=== PATIENT | male | born 2000 | race Caucasian/White ===

== ENCOUNTER 2021-02-22 11:36 | Inpatient (IN) ==
[2021-02-22 12:05] LABS: Appearance Urine Clear (Clear); Bacteria Urine Automated Negative (Negative); Bilirubin Urine Negative (Negative); Blood Urine Negative (Negative); Color Urine Dark Yellow; Glucose Urine UA Negative (Negative); Ketones Urine Trace (Negative); Leukocyte Esterase Urine Negative (Negative); Nitrite Urine Negative (Negative); Protein Urine Trace (Negative); RBC Urine Automated 0-4 /hpf (0-4); Specific Gravity Urine 1.026 (1.000-1.030); Urobilinogen Urine Negative (Negative)
--- NOTE | 2021-02-22 12:22 | Emergency Department Note ---
Impression & Plan Depressed mood, Tobacco use ED Provider Note NAME: AILEEN ANNE Jr AGE: 20 SEX: M : 2000 ARRIVES VIA: Walk-In INFORMANT: Patient, ED PROVIDER(S): Pedro Menard MD Chief Complaint: Depressed HPI: Patient does present due to concern for increasing depressed mood which is been ongoing but seems to be worse over the last several days. Patient states he has had symptoms for several months. Patient was recently started on Prozac 20 mg and increase to 40 mg. He has been on this for 2 weeks. Patient has had thoughts of apathy and not living but does not have active plan. No prior history of self-harm or suicide attempts. The patient does not have access to guns or weapons. The patient's from [facility] and is present with his father at bedside. The patient states his appetite is been poor sleeping has been okay. The patient had been on Prozac last year and seemed to do well and had come off it in the springtime. The patient denies any HI or AVH. Patient states that he is typically a straight a student but has not been doing so well this semester at [employer]. ROS: See HPI for pertinent positives and negatives. A total of 10 systems were reviewed and otherwise negative. Past medical history: See below Surgical history: See below Social history: See below Physical Exam: GENERAL: NAD, wearing a mask, non-toxic. EYE EXAM: Normal conjunctiva. PERRL, no anisocoria and EOM's grossly intact w/o pain. NECK: Supple, no nuchal rigidity, no adenopathy, non-tender. No signs of meningismus. LUNGS: Clear to auscultation. Normal chest wall mechanics. HEART: NSR, no MRG. ABDOMEN: Abdomen soft, non-tender, normo-active bowel sounds, no masses, no rebound or guarding. BACK: No CVA TTP. SKIN: No rashes and no bruising. UPPER EXTREMITIES: Upper extremities are grossly normal. LOWER EXTREMITIES: Grossly normal, no edema. NEURO EXAM: A&O x3, cranial nerves II-XII grossly intact, normal speech, moves all 4 extremities on command w/o issue. Psych: Depressed mood, negative HI or AVH. Differential diagnoses: Mood disorder, infection, hypoglycemia, electrolyte abnormalities, cardiac sources, intracerebral event, toxicologic, trauma, neurologic, as well as other pathologies. Course: Patient was seen and evaluated the bedside. Full history physical exam was performed. MDM: Patient was seen due to concern for mental wellness. Blood work was obtained and the patient was seen medically cleared. The patient did have a referral made to upstairs 3 S. The patient was pending admission. The patient was signed out to Dr. Petty pending possible admission. Past Med/Surg History Medical History ADHD Depression Surgical History No pertinent past surgical history Social History Smoking Status: Light tobacco smoker Tobacco Type: Smokeless Tobacco (Dip or Chew) Hx Alcohol Use: Yes Hx Substance Use: Yes Prescribed Medications: Marijuana Preferred Language: Ukrainian current occupational status: student current occupation: [employer] student Feels Safe at Home: No Immunizations: Vaccinated for COVID-19 Allergies Allergies Allergy/AdvReac Type Severity Reaction Status Date / Time amoxicillin [From Augmentin] Allergy Severe SEVERE Verified 12/15/18 04:30 VOMITING, DIARRHEA clavulanic acid Allergy Severe SEVERE Verified 12/15/18 04:30 [From Augmentin] VOMITING, DIARRHEA pollen extracts Allergy Intermediate SNEEZING, Verified 12/15/18 04:30 RUNNY NOSE Home Meds Home Medications Medication Instructions Recorded Confirmed fluoxetine 40 mg capsule (Prozac) 40 mg PO DAILY 02/22/21 02/22/21 ginkgo biloba 1 tab PO DAILY 02/22/21 02/22/21 multivitamin with minerals-folic 1 tab PO DAILY 02/22/21 02/22/21 acid 200 mcg chewable tablet (Men's Multivitamin Gummies) Results & Data (ED) Vital Signs Vital Signs - 24 hr 02/22/21 11:36 02/22/21 12:04 02/22/21 15:30 Temperature 37.2 C 37.2 C 36.9 C Temperature Source Oral Oral Oral Pulse Rate 72 Pulse Rate [Finger] 72 58 L Pulse Rhythm [Finger] Regular Pulse Strength [Finger] Normal Respiratory Rate 18 18 20 Respiratory Effort / Characteristics Non-Labored Spontaneous Respiratory Depth Normal Respiratory Pattern Regular Blood Pressure 123/68 Blood Pressure [Right Arm] 132/68 130/67 Blood Pressure Mean 86 Blood Pressure Mean [Right Arm] 89 88 Blood Pressure Position [Right Arm] Sitting Pulse Oximetry 95 95 97 Oxygen Delivery Method Room Air Room Air Room Air Sepsis Recent Fever Within 48 Hours No Sepsis New/Unexplained Change in Mental Status No Sepsis Action Taken by Nursing No Action Required Home Medications Current Medication List: was personally reviewed by me Laboratory Data Attestation: I reviewed the patient's lab results. Result diagrams: 02/22/21 12:19 02/22/21 12:19 Lab Results 02/22/21 02/22/21 02/22/21 Range/Units 11:49 11:49 12:19 WBC 9.63 (4.8-10.8) K/uL RBC 4.72 (4.7-6.1) M/uL Hgb 14.9 (14.0-18.0) g/dL Hct 42.5 (42-52) % MCV 90.0 (80-100) fL MCH 31.6 (25-34) pg MCHC 35.1 (32-36) g/dL RDW Std Deviation 40.5 (36.4-46.3) fL RDW Coeff of Odalis 12.3 (11.5-14.5) % Plt Count 247 (130-400) K/uL MPV 10.8 H (7.4-10.4) fL Immature Gran % (Auto) 0.2 % Neut % (Auto) 75.6 % Lymph % (Auto) 15.9 % Cannon % (Auto) 7.2 % Eos % (Auto) 0.8 % Baso % (Auto) 0.3 % Neut # (Auto) 7.28 H (1.4-6.5) K/uL Lymph # (Auto) 1.53 (1.2-3.4) K/uL Cannon # (Auto) 0.69 H (0.11-0.59) K/uL Eos # (Auto) 0.08 (0-0.5) K/uL Baso # (Auto) 0.03 (0-0.2) K/uL Immature Gran # (Auto) 0.02 (0.00-0.02) K/uL Sodium (136-145) mmol/L Potassium (3.5-5.1) mmol/L Chloride (98-107) mmol/L Carbon Dioxide (21-32) mmol/L Anion Gap (3-11) BUN (7-18) mg/dl Creatinine (0.6-1.4) mg/dl Est Cr Clr Drug Dosing ml/min Est GFR ( Amer) ml/min Est GFR (Non-Af Amer) ml/min BUN/Creatinine Ratio (10-20) Glucose (70-99) mg/dl Calcium (8.5-10.1) mg/dl Total Bilirubin (0.2-1) mg/dl AST (15-37) U/L ALT (12-78) U/L Alkaline Phosphatase (45-117) U/L Total Protein (6.4-8.2) gm/dl Albumin (3.4-5.0) gm/dl Globulin (2.5-4.0) gm/dl Albumin/Globulin Ratio (0.9-2) TSH (0.300-4.500) uIu/ml Urine Color Dark Yellow Urine Appearance Clear (Clear) Urine pH 6.0 (4.5-7.5) Ur Specific [place] 1.026 (1.000-1.030) Urine Protein Trace H (Negative) Urine Glucose (UA) Negative (Negative) Urine Ketones Trace H (Negative) Urine Blood Negative (Negative) Urine Nitrite Negative (Negative) Urine Bilirubin Negative (Negative) Urine Urobilinogen Negative (Negative) Ur Leukocyte Esterase Negative (Negative) Urine WBC (Auto) 1-5 (0-5) /hpf Urine RBC (Auto) 0-4 (0-4) /hpf U Hyaline Cast (Auto) 1-5 (0-5) /lpf U Epithel Cells (Auto) 10-20 H (0-5) /lpf Urine Bacteria (Auto) Negative (Negative) Salicylates (2.8-20) mg/dl Urine Opiates Screen Neg (Neg) Ur Methadone, Qual Neg (Neg) Acetaminophen (10-30) ug/ml Urine Barbiturates Neg (Neg) Ur Phencyclidine (PCP) Neg (Neg) U Amphetamin/Meth Scrn Neg (Neg) MDMA (Ecstasy) Screen Neg (Neg) U Benzodiazepines Scrn Neg (Neg) Ur Cocaine Metabolite Neg (Neg) U Marijuana (THC) Screen Pos H (Neg) Ethyl Alcohol mg/dL (0-3) mg/dl SARS-CoV-2, RNA, NAAT (NEGATIVE) 02/22/21 02/22/21 02/22/21 Range/Units 12:19 12:19 12:19 WBC (4.8-10.8) K/uL RBC (4.7-6.1) M/uL Hgb (14.0-18.0) g/dL Hct (42-52) % MCV (80-100) fL MCH (25-34) pg MCHC (32-36) g/dL RDW Std Deviation (36.4-46.3) fL RDW Coeff of Odalis (11.5-14.5) % Plt Count (130-400) K/uL MPV (7.4-10.4) fL Immature Gran % (Auto) % Neut % (Auto) % Lymph % (Auto) % Cannon % (Auto) % Eos % (Auto) % Baso % (Auto) % Neut # (Auto) (1.4-6.5) K/uL Lymph # (Auto) (1.2-3.4) K/uL Cannon # (Auto) (0.11-0.59) K/uL Eos # (Auto) (0-0.5) K/uL Baso # (Auto) (0-0.2) K/uL Immature Gran # (Auto) (0.00-0.02) K/uL Sodium 140 (136-145) mmol/L Potassium 3.7 (3.5-5.1) mmol/L Chloride 108 H (98-107) mmol/L Carbon Dioxide 27 (21-32) mmol/L Anion Gap 5.0 (3-11) BUN 11 (7-18) mg/dl Creatinine 1.04 (0.6-1.4) mg/dl Est Cr Clr Drug Dosing 123.3 ml/min Est GFR ( Amer) 118.4 ml/min Est GFR (Non-Af Amer) 102.2 ml/min BUN/Creatinine Ratio 10.9 (10-20) Glucose 96 (70-99) mg/dl Calcium 9.6 (8.5-10.1) mg/dl Total Bilirubin 0.6 (0.2-1) mg/dl AST 23 (15-37) U/L ALT 29 (12-78) U/L Alkaline Phosphatase 81 (45-117) U/L Total Protein 7.5 (6.4-8.2) gm/dl Albumin 4.0 (3.4-5.0) gm/dl Globulin 3.5 (2.5-4.0) gm/dl Albumin/Globulin Ratio 1.1 (0.9-2) TSH 0.901 (0.300-4.500) uIu/ml Urine Color Urine Appearance (Clear) Urine pH (4.5-7.5) Ur Specific [place] (1.000-1.030) Urine Protein (Negative) Urine Glucose (UA) (Negative) Urine Ketones (Negative) Urine Blood (Negative) Urine Nitrite (Negative) Urine Bilirubin (Negative) Urine Urobilinogen (Negative) Ur Leukocyte Esterase (Negative) Urine WBC (Auto) (0-5) /hpf Urine RBC (Auto) (0-4) /hpf U Hyaline Cast (Auto) (0-5) /lpf U Epithel Cells (Auto) (0-5) /lpf Urine Bacteria (Auto) (Negative) Salicylates < 1.7 L (2.8-20) mg/dl Urine Opiates Screen (Neg) Ur Methadone, Qual (Neg) Acetaminophen < 2 L (10-30) ug/ml Urine Barbiturates (Neg) Ur Phencyclidine (PCP) (Neg) U Amphetamin/Meth Scrn (Neg) MDMA (Ecstasy) Screen (Neg) U Benzodiazepines Scrn (Neg) Ur Cocaine Metabolite (Neg) U Marijuana (THC) Screen (Neg) Ethyl Alcohol mg/dL < 3.0 (0-3) mg/dl SARS-CoV-2, RNA, NAAT (NEGATIVE) 02/22/21 Range/Units 12:20 WBC (4.8-10.8) K/uL RBC (4.7-6.1) M/uL Hgb (14.0-18.0) g/dL Hct (42-52) % MCV (80-100) fL MCH (25-34) pg MCHC (32-36) g/dL RDW Std Deviation (36.4-46.3) fL RDW Coeff of Odalis (11.5-14.5) % Plt Count (130-400) K/uL MPV (7.4-10.4) fL Immature Gran % (Auto) % Neut % (Auto) % Lymph % (Auto) % Cannon % (Auto) % Eos % (Auto) % Baso % (Auto) % Neut # (Auto) (1.4-6.5) K/uL Lymph # (Auto) (1.2-3.4) K/uL Cannon # (Auto) (0.11-0.59) K/uL Eos # (Auto) (0-0.5) K/uL Baso # (Auto) (0-0.2) K/uL Immature Gran # (Auto) (0.00-0.02) K/uL Sodium (136-145) mmol/L Potassium (3.5-5.1) mmol/L Chloride (98-107) mmol/L Carbon Dioxide (21-32) mmol/L Anion Gap (3-11) BUN (7-18) mg/dl Creatinine (0.6-1.4) mg/dl Est Cr Clr Drug Dosing ml/min Est GFR ( Amer) ml/min Est GFR (Non-Af Amer) ml/min BUN/Creatinine Ratio (10-20) Glucose (70-99) mg/dl Calcium (8.5-10.1) mg/dl Total Bilirubin (0.2-1) mg/dl AST (15-37) U/L ALT (12-78) U/L Alkaline Phosphatase (45-117) U/L Total Protein (6.4-8.2) gm/dl Albumin (3.4-5.0) gm/dl Globulin (2.5-4.0) gm/dl Albumin/Globulin Ratio (0.9-2) TSH (0.300-4.500) uIu/ml Urine Color Urine Appearance (Clear) Urine pH (4.5-7.5) Ur Specific [place] (1.000-1.030) Urine Protein (Negative) Urine Glucose (UA) (Negative) Urine Ketones (Negative) Urine Blood (Negative) Urine Nitrite (Negative) Urine Bilirubin (Negative) Urine Urobilinogen (Negative) Ur Leukocyte Esterase (Negative) Urine WBC (Auto) (0-5) /hpf Urine RBC (Auto) (0-4) /hpf U Hyaline Cast (Auto) (0-5) /lpf U Epithel Cells (Auto) (0-5) /lpf Urine Bacteria (Auto) (Negative) Salicylates (2.8-20) mg/dl Urine Opiates Screen (Neg) Ur Methadone, Qual (Neg) Acetaminophen (10-30) ug/ml Urine Barbiturates (Neg) Ur Phencyclidine (PCP) (Neg) U Amphetamin/Meth Scrn (Neg) MDMA (Ecstasy) Screen (Neg) U Benzodiazepines Scrn (Neg) Ur Cocaine Metabolite (Neg) U Marijuana (THC) Screen (Neg) Ethyl Alcohol mg/dL (0-3) mg/dl SARS-CoV-2, RNA, NAAT NEGATIVE (NEGATIVE) Discharge Plan Visit Data Chief Complaint: Mental Health Evaluation Stated Complaint: DEPRESSION,MENTAL HEALTH ISSUES ED Provider: Yadiel Petty Discharge Problem: Depressed mood, Tobacco use Forms Stand Alone Forms: My [facility], Suicide Prevention Resources Prescriptions Prescriptions: No Action fluoxetine [Prozac] 40 mg Capsule 40 mg PO DAILY RF: 0 ginkgo biloba Tablet 1 tab PO DAILY RF: 0 Men's Multivitamin Gummies 200 mcg Tablet,Chewable 1 tab PO DAILY RF: 0 Referrals Referrals: PCP,NO [Physician] -
[2021-02-22 12:41] LABS: Basophils # (auto) 0.03 K/uL (0-0.2); Basophils % (auto) 0.3 %; Eosinophils # (auto) 0.08 K/uL (0-0.5); Eosinophils % (auto) 0.8 %; Hematocrit (blood only) 42.5 % (42-52); Hemoglobin 14.9 g/dL (14.0-18.0); Immature Granulocytes # (auto) 0.02 K/uL (0.00-0.02); Immature Granulocytes % (auto) 0.2 %; Lymphocytes # (auto) 1.53 K/uL (1.2-3.4); Lymphocytes % (auto) 15.9 %; Mean Corpuscular Hemoglobin 31.6 pg (25-34); Mean Corpuscular Hgb Conc 35.1 g/dL (32-36); Mean Platelet Volume 10.8 fL (7.4-10.4); Monocytes # (auto) 0.69 K/uL (0.11-0.59); Monocytes % (auto) 7.2 %; Neutrophils # (auto) 7.28 K/uL (1.4-6.5); Neutrophils % (auto) 75.6 %; Platelet Count 247 K/uL (130-400); RDW Coefficient of Variation 12.3 % (11.5-14.5); RDW Standard Deviation 40.5 fL (36.4-46.3); Red Blood Count 4.72 M/uL (4.7-6.1); White Blood Count 9.63 K/uL (4.8-10.8)
[2021-02-22 12:53] LABS: Amphetamines+Metham, Urine Neg (Neg); Barbiturates, Urine Neg (Neg); Benzodiazepine, Urine Neg (Neg); Cocaine, Urine Neg (Neg); MDMA (Ecstacy), Urine Neg (Neg); Methadone, Urine Neg (Neg); Opiate, Urine Neg (Neg); Phencyclidine, Urine Neg (Neg)
[2021-02-22 13:00] LABS: Acetaminophen < 2 ug/ml (10-30); BUN Creatinine Ratio 10.9 (10-20); Calcium 9.6 mg/dl (8.5-10.1); Creatinine Clr Calc Pharmacy 123.3 ml/min; Est GFR (African American) 118.4 ml/min; Est GFR (Non-African American) 102.2 ml/min; Potassium 3.7 mmol/L (3.5-5.1); Salicylate < 1.7 mg/dl (2.8-20)
[2021-02-22 13:10] LABS: Albumin Globulin Ratio 1.1 (0.9-2); Bilirubin,Total 0.6 mg/dl (0.2-1); Globulin 3.5 gm/dl (2.5-4.0); Thyroid Stimulating Hormone 0.901 uIu/ml (0.300-4.500); Total Protein 7.5 gm/dl (6.4-8.2)
[2021-02-22] MEDS ORDERED: SODIUM CHLORIDE 0.65% NA SOLN 45 ML (OCEAN) PRN ×2 (16:28→16:44)
[2021-02-22] MEDS ORDERED: BISMUTH SUBSALICYLATE LIQD 236 ML PO PRN ×2 (16:28→16:44)
[2021-02-22] MEDS ORDERED: ALUMINUM/MAGNESIUM SUSP 30 ML UDC PO PRN ×2 (16:28→16:44)
[2021-02-22] MEDS ORDERED: MAGNESIUM HYDROXIDE SUSP 30 ML UDC PO PRN ×2 (16:28→16:44)
[2021-02-22] MEDS ORDERED: hydrOXYzine HCl 25 MG TAB PO PRN ×4 (16:28→16:44)
[2021-02-22] MEDS ORDERED: ACETAMINOPHEN 325 MG TAB PO PRN ×2 (16:28→16:44)
--- NOTE | 2021-02-22 17:00 | Emergency Department Note ---
ED Visit Note [id number]: Signout from Dr. Menard. Awaiting psychiatric evaluation. 20-year-old college student with depression. .
[2021-02-22] MEDS: NICOTINE POLACRILEX 2 MG GUM MT PRN (20:39)
[2021-02-22] MEDS: FLUoxetine HCL 20 MG CAP PO SCH (21:14)
[2021-02-23] MEDS: FLUTICASONE PROPIONATE NA SPR 16 GM BTL SCH (09:37)
--- NOTE | 2021-02-23 09:41 | History & Physical ---
Date of Service February 23, 2021 Impression / Recommendations Impression The patient is a 20 year old with a history of ADHD, seasonal depression and anxiety who was admitted for worsening depression and SI. Diagnostically consistent with MDD with seasonal component as well as SOCORRO and per history ADHD. The patient is deemed unstable and requires psychiatric hospitalization for diagnostic clarification, safety and stabilization, medication management and development of further coping skills. Discussed treatment options including medication in detail. He would like to continue the fluoxetine as this was helpful in the past. Discussed option of adding Wellbutrin to help with depression symptoms of low energy, concentration and motivation, ADHD symptoms, and help reduce cravings for nicotine use. Discussed risks including cardiac effects, increased anxiety, insomnia, decreas ed appetite. Counseled on black box warning of potential for emergence of or increased SI and need to let staff know should this occur or should they feel unsafe. Also discussed importance of seeking emergency care following discharge if this side effect occurs in the future. He would like to start Wellbutrin. Additionally discussed his substance use. He is motivated to stop using marijuana. The patient's audit score suggests problematic alcohol use consistent with binge drinking though based on DSM criteria he does not meet criteria for alcohol use disorder. nevertheless brief intervention was offered and accepted. Intervention was greater than 5 minutes in length and included assessing readiness to quit, advice on how to reduce or abstain and to set a specific goal for this hospitalization. riprap worker will also assist in anticipating barriers to reducing or abstaining from substance use and in problem-solving for solutions to those problems while arranging for referral to appropriate treatment. The patient is in precontemplative stage with regards to transtheoretical model of change for reducing alcohol use. The patient is advised to decrease consumption due to depressant effects and risk of interaction with prescription medications. The patient will be provided with recovery materials to continue to educate self on how to cope with their condition without using substances. (1) MDD (major depressive disorder), recurrent episode, moderate: (2) SOCORRO (generalized anxiety disorder): (3) Alcohol use: (4) Nicotine use: 02/23/21: The patient was admitted to the [facility] ([facility] mental health unit) on q15 min checks (behavioral with suicide precautions) for safety. The patient will participate in group, recreational, and milieu therapies and will be offered additional individual and family sessions as clinically appropriate. Will start Wellbutrin XL 150mg qAM and continue fluoxetine 40mg qhs. Added melatonin 9mg qhs prn which he takes in gummy form at home. Discussed benefit of bright light therapy for seasonal component of depression in addition to continuing outpatient therapy. Will monitor dietary intake given reduced appetite prior to admission. Risk Factors Assessment Do You Have Access To A Gun?: No Protective Factors Assessment Employed: No Psychiatric History Identifying Data AILEEN ANNE is a 20-year-old man and [employer] student, has a history of ADHD, depression and anxiety, and was admitted on 02/22/21 16:44 on a 201 voluntary commitment for worsening depression and SI with plan. Chief Complaint "I don't really want to do anything". History of Present Illness Aileen is a 20 yo man and [employer] senior with a history of ADHD, anxiety and depression which has worsened seasonally in the winter for the last two years. Over the last two months he's been experiencing worsening mood with anhedonia, difficulty sleeping, low energy, social isolation, decreased concentration, decreased appetite with unintentional weight loss of about 10 lbs, and SI. He feels like "brain fog" is the most challenging symptom of the depression as well as feeling lack of emotions "nothing" and having no preferences (not wanting to listen to music, not voicing his opinion and just feeling like he's going through the motions without any desire to engage). He's also been feeling anxious with social anxiety as well as generalized anxiety and low self-esteem. He's been experiencing thoughts of SI almost daily over the last two months since the depression onset and notes he's thought of dying by falling onto a knife so that it penetrates his neck but he feels like he would never act on these thoughts. He does at times feel like suicide may be "inevitable". He sees a therapist and psychiatrist while at college via telemedicine visits and was recently restarted on fluoxetine 2 weeks ago at 20mg qd which was then increased last week to a current dose of 40mg daily. He hasn't noticed any benefit from this yet. Experiencing sexual side effects from it. Psychiatric ROS notable for no history of pete, no hx psychosis, no hx OCD, hx anxiety, hx alcohol use, hx marijuana use and uses nicotine pouches. Past Psychiatric History Current Psychiatric Diagnosis: MDD Outpatient Services: Dr. Baer for psychiatry and Dr. Bethea for therapy, both at [facility] in [facility]. Previous Psych Admissions: none Do You Have Access To A Gun?: No History of Previous Suicide Attempt: No Describe Attempts in the Past: None Past Medication Trials: fluoxetine in the past, stopped in spring 2020 due to improved mood, restarted 2 months ago. Adderall at age [age] but stopped after experiencing some palpitations and an episode of fainting. 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 Allergies Allergy/AdvReac Type Severity Reaction Status Date / Time amoxicillin [From Augmentin] Allergy Severe SEVERE Verified 12/15/18 04:30 VOMITING, DIARRHEA clavulanic acid Allergy Severe SEVERE Verified 12/15/18 04:30 [From Augmentin] VOMITING, DIARRHEA pollen extracts Allergy Intermediate SNEEZING, Verified 12/15/18 04:30 RUNNY NOSE Home Medications Medication Instructions Recorded Confirmed Type fluoxetine 40 mg capsule (Prozac) 40 mg PO DAILY 02/22/21 02/22/21 History ginkgo biloba 1 tab PO DAILY 02/22/21 02/22/21 History multivitamin with minerals-folic 1 tab PO DAILY 02/22/21 02/22/21 History acid 200 mcg chewable tablet (Men's Multivitamin Gummies) Family History Family History of: Depression, Anxiety and Suicide Attempts Family Mental Health History Comment: aunt and cousin both suffer from anxiety and depression and have both attempted suicide Alcohol History Hx of Alcohol Use Over the Past 12 Months: Yes (5-6 drinks, 2-3 times a week) AUDIT Total Score: 9 drinks ~5-8 beers typically 3 nights per week with his fraternity brothers. hx blacking out in the past, does not feel that alcohol use interferes with functioning nor has caused any negative repercussions Smoking Use Have You Smoked or Used Tobacco Products in the Last 30 Days: Yes tobacco type: smokeless tobacco (nicotine [id number] per day ) Smoking Status: Light tobacco smoker Substance History Hx of Prescription Med Misuse Over the Past 12 Months: No Hx of Over the Counter Med Misuse Over the Past 12 Months: No Hx of Inhalent Misuse Over the Past 12 Months: No Hx of Organic Substance Use Over the Past 12 Months: Yes (THC) Hx of Illegal Substances/Street Drug Use Over Past 12 Months: No Problems as a Result of Past Substance Use: None Identified marijuana use socially Personal History Living Arrangements: fraternity house Childhood: supportive family, raised outside [facility], parents when he was 14. Has 1 younger brother age 19 Employment Status: Student Beliefs That Will Affect Care: None Current Legal Problems: No Hx Legal Problems: No Hx Traumatic Life Events: No Patient History Medical History (Updated 02/23/21 @ 11:38 by Meredith Helton MD) ADHD Depression SOCRORO (generalized anxiety disorder) Surgical History No pertinent past surgical history Social History Smoking Status: Light tobacco smoker Tobacco Type: Smokeless Tobacco (Dip or Chew) Hx Alcohol Use: Yes Hx Substance Use: Yes Prescribed Medications: Marijuana Preferred Language: Sami Communication Ability: Effective Bulb Brander Required: No Beliefs That Will Affect Care: None current occupational status: student current occupation: [employer] student Feels Safe at Home: No Assistive Devices: Glasses Assistive Devices Comment: pt does not have glasses with him; states he does not wear them daily Review of Systems Review of Systems: All systems reviewed & are unremarkable except as noted in HPI & below chronic knee pain, recent neck and back pain which he attributes to poor posture Physical Exam Psychiatric: Orientation: alert and oriented x 3 Apperance: appropriately dressed and appropriately groomed Eye Contact: good eye contact Motor Behavior: steady gait and station and no abnormal motor movements Speech: normal rate/rhythm/volume of speech Affect: + depressed affect Mood: + depressed mood and + anxious mood Thought Process: goal directed thought process Thought Content: reality based without delusions Suicidal Thoughts: denies suicidal plan and denies suicidal intent; + reports suicidal thoughts (intermittent SI) Homicidal Thoughts: denies homicidal thoughts Hallucinations: no auditory hallucinations and no visual hallucinations Cognition: recent memory grossly intact, remote memory grossly intact, attention grossly intact and language grossly intact Estimated Intelligence: consistent with education level Insight: + fair insight Judgement: + fair judgement Vital Signs (Past 24 Hours): Last Vital Signs Temp 36.4 C L 02/23/21 06:38 Pulse 90 02/23/21 06:39 Resp 16 02/23/21 06:38 BP 104/68 02/23/21 06:39 Pulse Ox 97 02/22/21 15:30 Exam Statement: A physical exam was performed in the ED by Dr. Mike for the purposes of medical clearance. I accept that physical as correct and adequate for the purposes of the inpatient physical exam. Results & Data ([facility]) Laboratory Results Laboratory Results - last 24 hr 02/22/21 02/22/21 02/22/21 11:49 11:49 11:49 WBC RBC Hgb Hct MCV MCH MCHC RDW Std Deviation RDW Coeff of Odalis Plt Count MPV Immature Gran % (Auto) Neut % (Auto) Lymph % (Auto) [place] % (Auto) Eos % (Auto) Baso % (Auto) Neut # (Auto) Lymph # (Auto) [place] # (Auto) Eos # (Auto) Baso # (Auto) Immature Gran # (Auto) Sodium Potassium Chloride Carbon Dioxide Anion Gap BUN Creatinine Est Cr Clr Drug Dosing Est GFR ( Amer) Est GFR (Non-Af Amer) BUN/Creatinine Ratio Glucose Calcium Total Bilirubin AST ALT Alkaline Phosphatase Total Protein Albumin Globulin Albumin/Globulin Ratio TSH Urine Color Dark Yellow Urine Appearance Clear Urine pH 6.0 Ur Specific [place] 1.026 Urine Protein Trace H Urine Glucose (UA) Negative Urine Ketones Trace H Urine Blood Negative Urine Nitrite Negative Urine Bilirubin Negative Urine Urobilinogen Negative Ur Leukocyte Esterase Negative Urine WBC (Auto) 1-5 Urine RBC (Auto) 0-4 U Hyaline Cast (Auto) 1-5 U Epithel Cells (Auto) 10-20 H Urine Bacteria (Auto) Negative Salicylates Urine Opiates Screen Neg Ur Methadone, Qual Neg Acetaminophen Urine Barbiturates Neg Ur Phencyclidine (PCP) Neg U Amphetamin/Meth Scrn Neg MDMA (Ecstasy) Screen Neg U Benzodiazepines Scrn Neg Ur Cocaine Metabolite Neg U Marijuana (THC) Screen Pos H U Marijuana THC Carboxy Pending Drug Screen Comment Pending Ethyl Alcohol mg/dL SARS-CoV-2, RNA, NAAT 02/22/21 02/22/21 02/22/21 12:19 12:19 12:19 WBC 9.63 RBC 4.72 Hgb 14.9 Hct 42.5 MCV 90.0 MCH 31.6 MCHC 35.1 RDW Std Deviation 40.5 RDW Coeff of Odalis 12.3 Plt Count 247 MPV 10.8 H Immature Gran % (Auto) 0.2 Neut % (Auto) 75.6 Lymph % (Auto) 15.9 [place] % (Auto) 7.2 Eos % (Auto) 0.8 Baso % (Auto) 0.3 Neut # (Auto) 7.28 H Lymph # (Auto) 1.53 [place] # (Auto) 0.69 H Eos # (Auto) 0.08 Baso # (Auto) 0.03 Immature Gran # (Auto) 0.02 Sodium 140 Potassium 3.7 Chloride 108 H Carbon Dioxide 27 Anion Gap 5.0 BUN 11 Creatinine 1.04 Est Cr Clr Drug Dosing 123.3 Est GFR ( Amer) 118.4 Est GFR (Non-Af Amer) 102.2 BUN/Creatinine Ratio 10.9 Glucose 96 Calcium 9.6 Total Bilirubin 0.6 AST 23 ALT 29 Alkaline Phosphatase 81 Total Protein 7.5 Albumin 4.0 Globulin 3.5 Albumin/Globulin Ratio 1.1 TSH 0.901 Urine Color Urine Appearance Urine pH Ur Specific [place] Urine Protein Urine Glucose (UA) Urine Ketones Urine Blood Urine Nitrite Urine Bilirubin Urine Urobilinogen Ur Leukocyte Esterase Urine WBC (Auto) Urine RBC (Auto) U Hyaline Cast (Auto) U Epithel Cells (Auto) Urine Bacteria (Auto) Salicylates < 1.7 L Urine Opiates Screen Ur Methadone, Qual Acetaminophen < 2 L Urine Barbiturates Ur Phencyclidine (PCP) U Amphetamin/Meth Scrn MDMA (Ecstasy) Screen U Benzodiazepines Scrn Ur Cocaine Metabolite U Marijuana (THC) Screen U Marijuana THC Carboxy Drug Screen Comment Ethyl Alcohol mg/dL SARS-CoV-2, RNA, NAAT 02/22/21 02/22/21 12:19 12:20 WBC RBC Hgb Hct MCV MCH MCHC RDW Std Deviation RDW Coeff of Odalis Plt Count MPV Immature Gran % (Auto) Neut % (Auto) Lymph % (Auto) [place] % (Auto) Eos % (Auto) Baso % (Auto) Neut # (Auto) Lymph # (Auto) [place] # (Auto) Eos # (Auto) Baso # (Auto) Immature Gran # (Auto) Sodium Potassium Chloride Carbon Dioxide Anion Gap BUN Creatinine Est Cr Clr Drug Dosing Est GFR ( Amer) Est GFR (Non-Af Amer) BUN/Creatinine Ratio Glucose Calcium Total Bilirubin AST ALT Alkaline Phosphatase Total Protein Albumin Globulin Albumin/Globulin Ratio TSH Urine Color Urine Appearance Urine pH Ur Specific [place] Urine Protein Urine Glucose (UA) Urine Ketones Urine Blood Urine Nitrite Urine Bilirubin Urine Urobilinogen Ur Leukocyte Esterase Urine WBC (Auto) Urine RBC (Auto) U Hyaline Cast (Auto) U Epithel Cells (Auto) Urine Bacteria (Auto) Salicylates Urine Opiates Screen Ur Methadone, Qual Acetaminophen Urine Barbiturates Ur Phencyclidine (PCP) U Amphetamin/Meth Scrn MDMA (Ecstasy) Screen U Benzodiazepines Scrn Ur Cocaine Metabolite U Marijuana (THC) Screen U Marijuana THC Carboxy Drug Screen Comment Ethyl Alcohol mg/dL < 3.0 SARS-CoV-2, RNA, NAAT NEGATIVE Current Inpatient Medications Current Inpatient Medications: Current Inpatient Medications Acetaminophen (Acetaminophen 325 Mg Tab) 650 mg PO Q4H PRN PRN Reason: Headache or Minor Fever Stop: 03/24/21 16:43 Al Hydrox/Mg Hydrox/Simethicone (Aluminum/Magnesium Susp 30 Ml Udc) 30 ml PO Q4H PRN PRN Reason: GI Upset Stop: 03/24/21 16:43 Bismuth Subsalicylate (Bismuth Subsalicylate Liqd 236 Ml) 15 ml PO PRN PRN PRN Reason: Loose Stool Stop: 03/24/21 16:43 Fluoxetine HCl (Fluoxetine Hcl 20 Mg Cap) 40 mg PO QPM LEATHA Stop: 03/24/21 21:59 Last Admin: 02/22/21 21:14 Dose: 40 mg Documented by: Fluticasone Propionate (Fluticasone Propionate Na Spr 16 Gm Btl) 1 sprays NA QAM [facility] Stop: 03/25/21 08:59 Hydroxyzine HCl (Hydroxyzine Hcl 25 Mg Tab) 50 mg PO HSZ PRN PRN Reason: Insomnia Stop: 03/24/21 16:43 Hydroxyzine HCl (Hydroxyzine Hcl 25 Mg Tab) 25 mg PO Q4H PRN PRN Reason: Anxiety Stop: 03/24/21 16:43 Magnesium Hydroxide (Magnesium Hydroxide Susp 30 Ml Udc) 30 ml PO DAILY PRN PRN Reason: Constipation Stop: 03/24/21 16:43 Nicotine Polacrilex (Nicotine Polacrilex 2 Mg Gum) 1 piece MT PRN PRN PRN Reason: Cravings Stop: 03/24/21 18:16 Last Admin: 02/22/21 20:39 Dose: 1 piece Documented by: Sodium Chloride (Sodium Chloride 0.65% Na Soln 45 Ml ([place])) 1 - 2 sprays NA PRN PRN PRN Reason: Nasal Dryness/Congestion Stop: 03/24/21 16:43
[2021-02-23] MEDS: NICOTINE POLACRILEX 2 MG GUM MT PRN ×5 (09:45→21:19)
[2021-02-23] MEDS: buPROPion XL 150 MG TABCR PO SCH (11:50)
[2021-02-23 20:57] LABS: Marijuana Quant, GCMS Urine 441 ng/mL (<5)
[2021-02-23] MEDS: FLUoxetine HCL 20 MG CAP PO SCH (21:19)
[2021-02-24] MEDS ORDERED: FLUARIX QUADRIVALENT 0.5 ML SYR IM ONE (08:00)
[2021-02-24] MEDS: FLUTICASONE PROPIONATE NA SPR 16 GM BTL SCH (09:08)
[2021-02-24] MEDS: buPROPion XL 150 MG TABCR PO SCH (09:08)
[2021-02-24] MEDS: NICOTINE POLACRILEX 2 MG GUM MT PRN ×4 (09:59→20:14)
--- NOTE | 2021-02-24 16:24 | Psychiatric Progress Note ---
Date of Service February 24, 2021 Impression / Recommendations Impression The patient is a 20 year old with a history of ADHD, seasonal depression and anxiety who was admitted for worsening depression and SI. Diagnostically consistent with MDD with seasonal component as well as SOCORRO and per history ADHD. The patient is deemed unstable and requires psychiatric hospitalization for diagnostic clarification, safety and stabilization, medication management and development of further coping skills. 02/24/21: Discussed medication options of continuing with Wellbutrin at current dose of 150mg qd for augmentation and waiting for 2-4 weeks before dose increase versus increasing dose during hospitalization as more of a rapid titration. Although he understands we won't see full effect of Wellbutrin XL 150 mg until 4-6 weeks he would like to increase dose now to further target ADHD symptoms and given prominence of low energy, poor concentration and sexual side effects from SSRI. Consents to increasing Wellbutrin dose tomorrow. Feeling more hopeful. (1) MDD (major depressive disorder), recurrent episode, moderate: (2) SOCORRO (generalized anxiety disorder): (3) Alcohol use: (4) Nicotine use: 02/24/21: Tolerating Wellbutrin 150mg qAM in addition to fluoxetine 40mg qd well without any side effects. Feels energy level and "brain fog" is improved since starting Wellbutrin. 02/23/21: The patient was admitted to the [facility] ([facility] mental health unit) on q15 min checks (behavioral with suicide precautions) for safety. The patient will participate in group, recreational, and milieu therapies and will be offered additional individual and family sessions as clinically appropriate. Will start Wellbutrin XL 150mg qAM and continue fluoxetine 40mg qhs. Added melatonin 9mg qhs prn which he takes in gummy form at home. Discussed benefit of bright light therapy for seasonal component of depression in addition to continuing outpatient therapy. Will monitor dietary intake given reduced appetite prior to admission. Risk Factors Assessment Do You Have Access To A Gun?: No Protective Factors Assessment Employed: No Interval History Identifying Information AILEEN ANNE is a 20-year-old man and [employer] student, has a history of ADHD, depression and anxiety, and was admitted on 02/22/21 16:44 on a 201 voluntary commitment for worsening depression and SI with plan. Chief Complaint "I'm thinking more clearly". Review of Systems Sleep Information Total Hours of Sleep: 6 Meal Information Percent Meal Consumed - Breakfast: 100 Percent Meal Consumed - Lunch: 100 Percent Meal Consumed - Dinner: 100 Subjective Subjective Patient was seen & assessed and interval progress reviewed with treatment team nursing and social work. Family meeting held today. Had some difficulty falling asleep last night but feels this was due in part to feeling like he could think more clearly and wasn't as exhausted. Today continues to feel that his thoughts are clearer and notes he was able to joke with his parents on the phone for the first time in months. Feels his energy level is a bit improved with the Wellbutrin. Appetite is stable. Had some SI briefly last night but felt he could put it out of his mind quickly. Tolerating Wellbutrin well without any side effects. Physical Exam Psychiatric Orientation: alert and oriented x 3 Apperance: appropriately dressed and appropriately groomed Eye Contact: good eye contact Motor Behavior: steady gait and station and no abnormal motor movements Speech: normal rate/rhythm/volume of speech Affect: + anxious affect Mood: + depressed mood Thought Process: goal directed thought process Thought Content: reality based without delusions Suicidal Thoughts: denies suicidal plan and denies suicidal intent; + reports suicidal thoughts (intermittent SI) Homicidal Thoughts: denies homicidal thoughts Hallucinations: no auditory hallucinations and no visual hallucinations Cognition: recent memory grossly intact, remote memory grossly intact, attention grossly intact and language grossly intact Estimated Intelligence: consistent with education level Insight: + fair insight Judgement: + fair judgement Vital Signs (Past 24 Hours) Last Vital Signs Temp 36.5 C 02/24/21 06:00 Pulse 72 02/24/21 06:33 Resp 18 02/24/21 06:00 BP 115/72 02/24/21 06:33 Pulse Ox 97 02/22/21 15:30 Results & Data ([facility]) Laboratory Results Laboratory Results - last 24 hr 02/22/21 11:49 U Marijuana THC Carboxy 441 H Drug Screen Comment SEE NOTE Current Inpatient Medications Current Inpatient Medications: Current Inpatient Medications Acetaminophen (Acetaminophen 325 Mg Tab) 650 mg PO Q4H PRN PRN Reason: Headache or Minor Fever Stop: 03/24/21 16:43 Al Hydrox/Mg Hydrox/Simethicone (Aluminum/Magnesium Susp 30 Ml Udc) 30 ml PO Q4H PRN PRN Reason: GI Upset Stop: 03/24/21 16:43 Bismuth Subsalicylate (Bismuth Subsalicylate Liqd 236 Ml) 15 ml PO PRN PRN PRN Reason: Loose Stool Stop: 03/24/21 16:43 Bupropion HCl (Bupropion Xl 150 Mg Tabcr) 150 mg PO QAM LEATHA Stop: 03/25/21 10:59 Last Admin: 02/24/21 09:08 Dose: 150 mg Documented by: Fluoxetine HCl (Fluoxetine Hcl 20 Mg Cap) 40 mg PO QPM LEATHA Stop: 03/24/21 21:59 Last Admin: 02/23/21 21:19 Dose: 40 mg Documented by: Fluticasone Propionate (Fluticasone Propionate Na Spr 16 Gm Btl) 1 sprays NA QAM LEATHA Stop: 03/25/21 08:59 Last Admin: 02/24/21 09:08 Dose: 1 sprays Documented by: Hydroxyzine HCl (Hydroxyzine Hcl 25 Mg Tab) 50 mg PO HSZ PRN PRN Reason: Insomnia Stop: 03/24/21 16:43 Hydroxyzine HCl (Hydroxyzine Hcl 25 Mg Tab) 25 mg PO Q4H PRN PRN Reason: Anxiety Stop: 03/24/21 16:43 Magnesium Hydroxide (Magnesium Hydroxide Susp 30 Ml Udc) 30 ml PO DAILY PRN PRN Reason: Constipation Stop: 03/24/21 16:43 Melatonin (Melatonin 3 Mg Tab) 9 mg PO HS PRN PRN Reason: Sleep Stop: 03/25/21 10:57 Nicotine Polacrilex (Nicotine Polacrilex 2 Mg Gum) 1 piece MT PRN PRN PRN Reason: Cravings Stop: 03/24/21 18:16 Last Admin: 02/24/21 13:17 Dose: 1 piece Documented by: Sodium Chloride (Sodium Chloride 0.65% Na Soln 45 Ml ([place])) 1 - 2 sprays NA PRN PRN PRN Reason: Nasal Dryness/Congestion Stop: 03/24/21 16:43 Mental Health & Subst Abuse Tx Psychiatrist Name of Psychiatrist: [facility] Psychiatrist's Date of Appointment with Psychiatrist: 03/01/21 Time of Appointment with Psychiatrist: 12:15pm Psychiatric Appointment Comment: telehealth Therapist Name of Therapist: [facility] - Dr. Bethea Therapist's Date of Therapist Appointment: 02/26/21 Therapy Appointment Comment: telehealth Post Discharge Appointments Primary Care Physician Name Of Family Doctor: [facility] Primary Care Provider Appointment Comment: [facility] Contact Information Discharge Discharge Address: [facility] [address] [place], [place]
[2021-02-24] MEDS: FLUoxetine HCL 20 MG CAP PO SCH (20:24)
[2021-02-24] MEDS: MELATONIN 3 MG TAB PO PRN (22:24)
[2021-02-25] MEDS: NICOTINE POLACRILEX 2 MG GUM MT PRN ×5 (09:06→20:37)
[2021-02-25] MEDS: FLUTICASONE PROPIONATE NA SPR 16 GM BTL SCH (09:07)
[2021-02-25] MEDS: buPROPion XL 300 MG TABCR PO SCH (09:07)
--- NOTE | 2021-02-25 15:15 | Psychiatric Progress Note ---
Date of Service February 25, 2021 Impression / Recommendations Impression The patient is a 20 year old with a history of ADHD, seasonal depression and anxiety who was admitted for worsening depression and SI. Diagnostically consistent with MDD with seasonal component as well as SOCORRO and per history ADHD. The patient is deemed unstable and requires psychiatric hospitalization for diagnostic clarification, safety and stabilization, medication management and development of further coping skills. 02/25/21: Showing ongoing improvement in mood with brightened affect, future- oriented thoughts and increased energy, concentration and thought clarity. Motivational interviewing regarding alcohol use and tobacco use. (1) MDD (major depressive disorder), recurrent episode, moderate: (2) SOCORRO (generalized anxiety disorder): (3) Alcohol use: (4) Nicotine use: 02/25/21: Increased Wellbutrin to 300mg qAM to further target low energy, difficulty with concentration, ADHD and sexual side effects from fluoxetine. He's tolerating increased dose well without any side effects and finds it helpful. Continuing to tolerate fluoxetine well. 02/24/21: Tolerating Wellbutrin 150mg qAM in addition to fluoxetine 40mg qd well without any side effects. Feels energy level and "brain fog" is improved since starting Wellbutrin. 02/23/21: The patient was admitted to the [facility] ([facility] mental health unit) on q15 min checks (behavioral with suicide precautions) for safety. The patient will participate in group, recreational, and milieu therapies and will be offered additional individual and family sessions as clinically appropriate. Will start Wellbutrin XL 150mg qAM and continue fluoxetine 40mg qhs. Added melatonin 9mg qhs prn which he takes in gummy form at home. Discussed benefit of bright light therapy for seasonal component of depression in addition to continuing outpatient therapy. Will monitor dietary intake given reduced appetite prior to admission. Risk Factors Assessment Do You Have Access To A Gun?: No Protective Factors Assessment Employed: No Interval History Identifying Information AILEEN ANNE is a 20-year-old man and [employer] student, has a history of ADHD, depression and anxiety, and was admitted on 02/22/21 16:44 on a 201 voluntary commitment for worsening depression and SI with plan. Chief Complaint "I'm pretty good". Review of Systems Sleep Information Total Hours of Sleep: 6 Meal Information Percent Meal Consumed - Breakfast: 100 Percent Meal Consumed - Lunch: 100 Percent Meal Consumed - Dinner: 100 Subjective Subjective Patient was seen & assessed and interval progress reviewed with treatment team nursing and social work. He reports improving mood with improved energy, concentration and thought clarity since starting and increasing the Wellbutrin. No side effects, sleeping fairly well. Had a good family meeting and feels his family is very supportive. He's hopeful that the Wellbutrin helps to reverse the sexual side effects from the fluoxetine. No SI yesterday and none today. Physical Exam Psychiatric Orientation: alert and oriented x 3 Apperance: appropriately dressed and appropriately groomed Eye Contact: good eye contact Motor Behavior: steady gait and station and no abnormal motor movements Speech: normal rate/rhythm/volume of speech Affect: euthymic affect Mood: + depressed mood Thought Process: goal directed thought process Thought Content: reality based without delusions Suicidal Thoughts: denies suicidal thoughts Homicidal Thoughts: denies homicidal thoughts Hallucinations: no auditory hallucinations and no visual hallucinations Cognition: recent memory grossly intact, remote memory grossly intact, attention grossly intact and language grossly intact Estimated Intelligence: consistent with education level Insight: + fair insight Judgement: + fair judgement Vital Signs (Past 24 Hours) Last Vital Signs Temp 36.4 C L 02/25/21 06:00 Pulse 68 02/25/21 06:47 Resp 16 02/25/21 06:00 BP 121/79 02/25/21 06:47 Pulse Ox 97 02/22/21 15:30 Results & Data ([facility]) Current Inpatient Medications Current Inpatient Medications: Current Inpatient Medications Acetaminophen (Acetaminophen 325 Mg Tab) 650 mg PO Q4H PRN PRN Reason: Headache or Minor Fever Stop: 03/24/21 16:43 Al Hydrox/Mg Hydrox/Simethicone (Aluminum/Magnesium Susp 30 Ml Udc) 30 ml PO Q4H PRN PRN Reason: GI Upset Stop: 03/24/21 16:43 Bismuth Subsalicylate (Bismuth Subsalicylate Liqd 236 Ml) 15 ml PO PRN PRN PRN Reason: Loose Stool Stop: 03/24/21 16:43 Bupropion HCl (Bupropion Xl 300 Mg Tabcr) 300 mg PO QAM LEATHA Stop: 03/27/21 08:59 Last Admin: 02/25/21 09:07 Dose: 300 mg Documented by: Fluoxetine HCl (Fluoxetine Hcl 20 Mg Cap) 40 mg PO QPM LEATHA Stop: 03/24/21 21:59 Last Admin: 02/24/21 20:24 Dose: 40 mg Documented by: Fluticasone Propionate (Fluticasone Propionate Na Spr 16 Gm Btl) 1 sprays NA QAM LEATHA Stop: 03/25/21 08:59 Last Admin: 02/25/21 09:07 Dose: 1 sprays Documented by: Hydroxyzine HCl (Hydroxyzine Hcl 25 Mg Tab) 50 mg PO HSZ PRN PRN Reason: Insomnia Stop: 03/24/21 16:43 Hydroxyzine HCl (Hydroxyzine Hcl 25 Mg Tab) 25 mg PO Q4H PRN PRN Reason: Anxiety Stop: 03/24/21 16:43 Magnesium Hydroxide (Magnesium Hydroxide Susp 30 Ml Udc) 30 ml PO DAILY PRN PRN Reason: Constipation Stop: 03/24/21 16:43 Melatonin (Melatonin 3 Mg Tab) 9 mg PO HS PRN PRN Reason: Sleep Stop: 03/25/21 10:57 Last Admin: 02/24/21 22:24 Dose: 9 mg Documented by: Nicotine Polacrilex (Nicotine Polacrilex 2 Mg Gum) 1 piece MT PRN PRN PRN Reason: Cravings Stop: 03/24/21 18:16 Last Admin: 02/25/21 13:45 Dose: 1 piece Documented by: Sodium Chloride (Sodium Chloride 0.65% Na Soln 45 Ml ([place])) 1 - 2 sprays NA PRN PRN PRN Reason: Nasal Dryness/Congestion Stop: 03/24/21 16:43 Mental Health & Subst Abuse Tx Psychiatrist Name of Psychiatrist: [facility] India Nguyen Dr. Psychiatrist's Date of Appointment with Psychiatrist: 03/01/21 Time of Appointment with Psychiatrist: 12:15pm Psychiatric Appointment Comment: telehealth Therapist Name of Therapist: [facility] F[facility] Nguyen - Dr. Limbec Therapist's Date of Therapist Appointment: 02/26/21 Time of Therapist Appointment: Please follow up to schedule Therapy Appointment Comment: telehealth Post Discharge Appointments Primary Care Physician Name Of Family Doctor: [facility] Primary Care Time of Appointment with PCP: Follow up as needed Provider Appointment Comment: [facility] Contact Information Discharge Discharge Address: [address] [place], [place]
[2021-02-25] MEDS: FLUoxetine HCL 20 MG CAP PO SCH (21:30)
[2021-02-25] MEDS: MELATONIN 3 MG TAB PO PRN (21:31)
[2021-02-26] MEDS: buPROPion XL 300 MG TABCR PO SCH (09:40)
[2021-02-26] MEDS: FLUTICASONE PROPIONATE NA SPR 16 GM BTL SCH (09:40)
[2021-02-26] MEDS: NICOTINE POLACRILEX 2 MG GUM MT PRN ×2 (09:43→13:18)
--- NOTE | 2021-02-26 13:02 | Discharge Summary ---
Date of Service February 26, 2021 History of Present Illness Patrice is a 20 yo man and [employer] senior with a history of ADHD, anxiety and depression which has worsened seasonally in the winter for the last two years. Over the last two months he's been experiencing worsening mood with anhedonia, difficulty sleeping, low energy, social isolation, decreased concentration, decreased appetite with unintentional weight loss of about 10 lbs, and SI. He feels like "brain fog" is the most challenging symptom of the depression as well as feeling lack of emotions "nothing" and having no preferences (not wanting to listen to music, not voicing his opinion and just feeling like he's going through the motions without any desire to engage). He's also been feeling anxious with social anxiety as well as generalized anxiety and low self-esteem. He's been experiencing thoughts of SI almost daily over the last two months sin ce the depression onset and notes he's thought of dying by falling onto a knife so that it penetrates his neck but he feels like he would never act on these thoughts. He does at times feel like suicide may be "inevitable". He sees a therapist and psychiatrist while at [employer] via telemedicine visits and was recently restarted on fluoxetine 2 weeks ago at 20mg qd which was then increased last week to a current dose of 40mg daily. He hasn't noticed any benefit from this yet. Experiencing sexual side effects from it. Psychiatric ROS notable for no history of pete, no hx psychosis, no hx OCD, hx anxiety, hx alcohol use, hx marijuana use and uses nicotine pouches. Physical Exam Vital Signs (Past 24 Hours) Last Vital Signs Temp 36.7 C 02/26/21 10:57 Pulse 58 L 02/26/21 10:57 Resp 16 02/26/21 10:57 BP 121/79 02/26/21 10:57 Pulse Ox 97 02/26/21 10:57 See admission H&P and DOD summary. Principal Diagnosis Major Depressive Disorder Psychiatric Data See daily stay summary. In short, safety was maintained and the patient was cooperative with care. He was experienced depressed mood and periods of intermittent SI. His SI resolved after two days and his mood improved with medication addition of Wellbutrin XL as augmentation to his recently restarted fluoxetine. He noted significant improvement in concentration, clarity of thoughts and return of his sense of humor which he cited as all positive signs of improvement in depression. Sleep and appetite were stable. On day of discharge he was slightly anxious about returning to school and getting caught up on his course work but he felt well supported with plan of seeing his psychiatrist on Thursday 03/01, having follow-up with student advocacy and reviewing strategies for time management/setting short blocks of time to address emails and work that he now needs to catch up on. He continued to feel ready for discharge and eager to see his friends and family. Medication changes included initiation and titration of Wellbutrin XL 300mg qd and hydroxyzine 25 mg qd prn for anxiety and they tolerated this well. A family session was held and safety plan was completed prior to discharge. Day of Discharge Assessment Today the patient voices readiness for discharge. They note improvement in mood and anxiety. They deny thoughts of harm to self or others. Thoughts remain organized and they are clinically improved from admission. There is no evidence of psychosis. They improved in the hospital with support and medication adjustments. They agree to take medications as prescribed and keep follow-up appointments. At the time of the discharge they are deemed to be stable and appropriate for outpatient level of care. They are not deemed to be at imminent risk of harm to self or others. They are aware of emergency and crisis services. Knows to call 911 or go to nearest emergency care center if in a crisis which cannot be handled as an outpatient. Transition of Care Transition Of Care Record: was reviewed with the patient Advance Directives Advance Directives Information Provided: Yes Advance Directives: No Mental Health Advance Directive: No Advance Directives on File: No Living Will: No Power of Presales Engineer: No Advance Directives Reason:: Declines as Mental Health Visit. Risk Factors Assessment Male: Yes : Yes Do You Have Access To A Gun?: No Health Problems: No Mental Health Diagnoses: Yes Substance Use Disorders: Yes Previous Attempt: No Family History of Suicide: Yes Previous Psychiatric Hospitalization: No Hopelessness: No Smoker: No Protective Factors Assessment Employed: Yes Stable Relationships: Yes Supportive Family: Yes Good Rapport with Provider: Yes Discharge Data Lab Results 02/22/21 02/22/21 02/22/21 11:49 11:49 11:49 WBC RBC Hgb Hct MCV MCH MCHC RDW Std Deviation RDW Coeff of Odalis Plt Count MPV Immature Gran % (Auto) Neut % (Auto) Lymph % (Auto) Kendall % (Auto) Eos % (Auto) Baso % (Auto) Neut # (Auto) Lymph # (Auto) Kendall # (Auto) Eos # (Auto) Baso # (Auto) Immature Gran # (Auto) Sodium Potassium Chloride Carbon Dioxide Anion Gap BUN Creatinine Est Cr Clr Drug Dosing Est GFR ( Amer) Est GFR (Non-Af Amer) BUN/Creatinine Ratio Glucose Calcium Total Bilirubin AST ALT Alkaline Phosphatase Total Protein Albumin Globulin Albumin/Globulin Ratio TSH Urine Color Dark Yellow Urine Appearance Clear Urine pH 6.0 Ur Specific Allen 1.026 Urine Protein Trace H Urine Glucose (UA) Negative Urine Ketones Trace H Urine Blood Negative Urine Nitrite Negative Urine Bilirubin Negative Urine Urobilinogen Negative Ur Leukocyte Esterase Negative Urine WBC (Auto) 1-5 Urine RBC (Auto) 0-4 U Hyaline Cast (Auto) 1-5 U Epithel Cells (Auto) 10-20 H Urine Bacteria (Auto) Negative Salicylates Urine Opiates Screen Neg Ur Methadone, Qual Neg Acetaminophen Urine Barbiturates Neg Ur Phencyclidine (PCP) Neg U Amphetamin/Meth Scrn Neg MDMA (Ecstasy) Screen Neg U Benzodiazepines Scrn Neg Ur Cocaine Metabolite Neg U Marijuana (THC) Screen Pos H U Marijuana THC Carboxy 441 H Drug Screen Comment SEE NOTE Ethyl Alcohol mg/dL SARS-CoV-2, RNA, NAAT 02/22/21 02/22/21 02/22/21 12:19 12:19 12:19 WBC 9.63 RBC 4.72 Hgb 14.9 Hct 42.5 MCV 90.0 MCH 31.6 MCHC 35.1 RDW Std Deviation 40.5 RDW Coeff of Odalis 12.3 Plt Count 247 MPV 10.8 H Immature Gran % (Auto) 0.2 Neut % (Auto) 75.6 Lymph % (Auto) 15.9 Kendall % (Auto) 7.2 Eos % (Auto) 0.8 Baso % (Auto) 0.3 Neut # (Auto) 7.28 H Lymph # (Auto) 1.53 Kendall # (Auto) 0.69 H Eos # (Auto) 0.08 Baso # (Auto) 0.03 Immature Gran # (Auto) 0.02 Sodium 140 Potassium 3.7 Chloride 108 H Carbon Dioxide 27 Anion Gap 5.0 BUN 11 Creatinine 1.04 Est Cr Clr Drug Dosing 123.3 Est GFR ( Amer) 118.4 Est GFR (Non-Af Amer) 102.2 BUN/Creatinine Ratio 10.9 Glucose 96 Calcium 9.6 Total Bilirubin 0.6 AST 23 ALT 29 Alkaline Phosphatase 81 Total Protein 7.5 Albumin 4.0 Globulin 3.5 Albumin/Globulin Ratio 1.1 TSH 0.901 Urine Color Urine Appearance Urine pH Ur Specific Allen Urine Protein Urine Glucose (UA) Urine Ketones Urine Blood Urine Nitrite Urine Bilirubin Urine Urobilinogen Ur Leukocyte Esterase Urine WBC (Auto) Urine RBC (Auto) U Hyaline Cast (Auto) U Epithel Cells (Auto) Urine Bacteria (Auto) Salicylates < 1.7 L Urine Opiates Screen Ur Methadone, Qual Acetaminophen < 2 L Urine Barbiturates Ur Phencyclidine (PCP) U Amphetamin/Meth Scrn MDMA (Ecstasy) Screen U Benzodiazepines Scrn Ur Cocaine Metabolite U Marijuana (THC) Screen U Marijuana THC Carboxy Drug Screen Comment Ethyl Alcohol mg/dL SARS-CoV-2, RNA, NAAT 02/22/21 02/22/21 12:19 12:20 WBC RBC Hgb Hct MCV MCH MCHC RDW Std Deviation RDW Coeff of Odalis Plt Count MPV Immature Gran % (Auto) Neut % (Auto) Lymph % (Auto) Kendall % (Auto) Eos % (Auto) Baso % (Auto) Neut # (Auto) Lymph # (Auto) Kendall # (Auto) Eos # (Auto) Baso # (Auto) Immature Gran # (Auto) Sodium Potassium Chloride Carbon Dioxide Anion Gap BUN Creatinine Est Cr Clr Drug Dosing Est GFR ( Amer) Est GFR (Non-Af Amer) BUN/Creatinine Ratio Glucose Calcium Total Bilirubin AST ALT Alkaline Phosphatase Total Protein Albumin Globulin Albumin/Globulin Ratio TSH Urine Color Urine Appearance Urine pH Ur Specific Allen Urine Protein Urine Glucose (UA) Urine Ketones Urine Blood Urine Nitrite Urine Bilirubin Urine Urobilinogen Ur Leukocyte Esterase Urine WBC (Auto) Urine RBC (Auto) U Hyaline Cast (Auto) U Epithel Cells (Auto) Urine Bacteria (Auto) Salicylates Urine Opiates Screen Ur Methadone, Qual Acetaminophen Urine Barbiturates Ur Phencyclidine (PCP) U Amphetamin/Meth Scrn MDMA (Ecstasy) Screen U Benzodiazepines Scrn Ur Cocaine Metabolite U Marijuana (THC) Screen U Marijuana THC Carboxy Drug Screen Comment Ethyl Alcohol mg/dL < 3.0 SARS-CoV-2, RNA, NAAT NEGATIVE Hospital Course (1) MDD (major depressive disorder), recurrent episode, moderate: (2) SOCORRO (generalized anxiety disorder): (3) Alcohol use: (4) Nicotine use: 02/26/21: Continues to tolerate Wellbutrin without any side effects and finds it helpful for concentration and mood. He feels ready and safe for discharge. 02/25/21: Increased Wellbutrin to 300mg qAM to further target low energy, difficulty with concentration, ADHD and sexual side effects from fluoxetine. He's tolerating increased dose well without any side effects and finds it helpful. Continuing to tolerate fluoxetine well. 02/24/21: Tolerating Wellbutrin 150mg qAM in addition to fluoxetine 40mg qd well without any side effects. Feels energy level and "brain fog" is improved since starting Wellbutrin. 02/23/21: The patient was admitted to the [facility] ([facility] mental health unit) on q15 min checks (behavioral with suicide precautions) for safety. The patient will participate in group, recreational, and milieu therapies and will be offered additional individual and family sessions as clinically appropriate. Will start Wellbutrin XL 150mg qAM and continue fluoxetine 40mg qhs. Added melatonin 9mg qhs prn which he takes in gummy form at home. Discussed benefit of bright light therapy for seasonal component of depression in addition to continuing outpatient therapy. Will monitor dietary intake given reduced appetite prior to admission. Mental Health & Subst Abuse Tx Psychiatrist Name of Psychiatrist: [facility]- Dr. Gusman Psychiatrist's Date of Appointment with Psychiatrist: 03/01/21 Time of Appointment with Psychiatrist: 12:15pm Psychiatric Appointment Comment: telehealth Psychiatrist Release of Information: Obtained, Reviewed and Signed Therapist Name of Therapist: [facility], - Dr. Bethea Therapist's Date of Therapist Appointment: 02/26/21 Time of Therapist Appointment: Please follow up to schedule Therapy Appointment Comment: telehealth Therapist Release of Information: Obtained, Reviewed and Signed Post Discharge Appointments Primary Care Physician Name Of Family Doctor: [facility] Primary Care Time of Appointment with PCP: Follow up as needed Provider Appointment Comment: [facility] Primary Care Release of Information: Obtained, Reviewed and Signed Other #1: Name of Aftercare Appointment: [facility]ocacy - Olivia Johnson Phone Number of Aftercare Appointment: [phone] Date of Aftercare Appointment: 03/01/21 Time of Aftercare Appointment: 2:30 p.m. Aftercare Appointment Comment: Will call you Contact Information Discharge Discharge Address: [address] [place] [address] Discharge Plan Discharge Items Patient Disposition: Home - Self-Care Reason For Visit: DEPRESSION,MENTAL HEALTH ISSUES Discharge Diagnosis: Major Depressive Disorder Condition on Discharge: Good Activity: Resume your previous activity Non-emergency contact: Primary Care Provider, Psychiatrist and Therapist Call non-emergency contact if: you have any medication questions and your symptoms worsen Follow-up/Referrals: [facility] [Primary Care Provider] - Diet: Regular Addtl Attending Provider Instructions: SPECIAL CARE INSTRUCTIONS: 1. Follow through with your scheduled aftercare appointments. If unable to keep an appointment, please call to reschedule. 2. Take your medication only as prescribed. Medication should not be changed or stopped without the approval of your doctor. In the event of worsening symptoms or concerns about side effects, contact your doctor immediately. 3. Utilize new healthy coping skills, anger management skills, and stress management skills learned during your hospitalization. Journal feelings and process them with a support person. Identify stressors or situations that may result in relapse, deterioration or inappropriate behaviors and develop a plan to deal with those issues. 4. If your coping skills are ineffective and you are in crisis, contact your outpatient providers for direction. If unable to reach your providers, please call the [facility] CRISIS LINE AT , go to the [facility] walk-in center at [address], [address], [place], or go to the closest Emergency Room. 5. Avoid alcohol and un-prescribed drugs. 6. You have been provided with the Mental Health Advance Directives Pamphlet for your review. 7. Your condition is stable for discharge to outpatient level of care, but recovery is an ongoing process. Ifthoughts to harm yourself or others return, follow the safety plan developed during your stay. Planning for a safe return home includes securing weapons. Our treatment team recommends weaponsbe removed from the home until your outpatient provider reassesses your progress. In rare cases where the items themselvescannot be removed, guns and ammunitionshould be secured separatelyand keys stored by a reliable personoutside of the home. If you were admitted on an involuntary commitment, the police or other legal authorities may be involved in this process. AFTERCARE APPOINTMENTS: * Please call your insurance company prior to your scheduled appointment to confirm your aftercare providers are covered. Take your insurance information to your appointments. WHO TO CALL AND WHEN: Medical Emergencies: For questions or emergencies related to your hospital stay, please contact the Inpatient Behavioral Health Unit at [phone]. A residence hall director is on-call 17/10 for the Behavioral Health Unit for emergencies At any time you feel your situation is an emergency, you may also call 911 immediately. Pending Studies at Discharge: No Stand-Alone Forms: My [facility] 1d4 Pty, Smoking Cessation Medications and DC Order Prescriptions: New bupropion HCl 300 mg Tablet Extended Release 24 Hr 300 mg PO QAM 30 Days Qty: 30 RF: 0 hydroxyzine HCl 25 mg Tablet 25 mg PO DAILY PRN (Reason: anxiety) 30 Days Qty: 10 RF: 0 Continued fluoxetine [Prozac] 40 mg Capsule 40 mg PO DAILY RF: 0 ginkgo biloba Tablet 1 tab PO DAILY RF: 0 Men's Multivitamin Gummies 200 mcg Tablet,Chewable 1 tab PO DAILY RF: 0 Discharge Orders: Discharge Order (Routine); Ordered 02/26/21 Ordered By: Meredith Jorgensen/Other Patient Handouts: Depression: Tips to Help Yourself Admission Data Admit Date/Time: 02/22/21 16:44 Attending Provider: Meredith Helton Admit Provider: Meredith Helton Primary Care Provider: [facility] Other Interventions: Discharge Summary Assessment (RN) Last Done: 02/26/21 10:57 Coding Level of Care Code 43478 D/C day mgmt > 30 min Diagnoses MDD (major depressive disorder), recurrent episode, moderate F33.1 SOCORRO (generalized anxiety disorder) F41.1 Alcohol use Z72.89 Nicotine use Z72.0 Time Spent (min) 35
== END 2021-02-26 14:30 | disposition home or self-care (01) | DRG 885 ==
LOC: ED 11:36 → 3S 16:44